=== PATIENT | female | born 1960 | race Caucasian/White ===

== ENCOUNTER 2017-02-18 14:30 | Emergency (ER) | payer OTHER ==
--- NOTE | 2017-02-18 15:11 | C.PDOC ---
History Of Present Illness <Osman Shi - Last Filed: 02/18/17 15:27> <Renee Jerry - Last Filed: 02/18/17 15:42> 56 year old female presenting with right knee pain. She has been having pain for many months but acutely twisted her knee while walking up the stairs at home 2 weeks ago. She denies falling. For the last two weeks she has been icing this area and resting. She was using OTC advil but states that it did not provide adequate relief, so she stopped taking it. Her is at bedside and explains that she is only able to walk a block or two at a time before needing to stop because she is in pain. She has been evaluated by Dr. Vazquez in the past and given oral analgesics. (Osman Shi) History Per: Patient, Family Onset/Duration Of Symptoms: Hrs, Persistent Current Symptoms Are (Timing): Still Present Severity: Moderate Pain Scale Rating Of: 5 Legs Front+Back: 1 - left knee pain along the anterior aspect Additional History Per: Family - Knee Description Of Injury: Twisted (right; no fall). denies: Fell Currently Unable To: Other (walk long periods) Alleviating Factor(s): Ice Therapy, Elevation, OTC Pain Medication <Osman Shi - Last Filed: 02/18/17 15:27> <Renee Jerry - Last Filed: 02/18/17 15:42> Time Seen by Provider: 02/18/17 15:01 Chief Complaint (Nursing): Lower Extremity Problem/Injury Past Medical History - Medical History PMH: Diabetes (IDDM), Hypercholesterolemia Other PMH: HTN Surgical History: No Surg Hx Family History: States: Unknown Family Hx - Social History Hx Alcohol Use: No Hx Substance Use: No <Osman Shi - Last Filed: 02/18/17 15:27> Vital Signs: Last Vital Signs Temp 98.5 F 02/18/17 14:55 Pulse 76 02/18/17 14:55 Resp 17 02/18/17 14:55 BP 108/66 02/18/17 14:55 Pulse Ox 98 02/18/17 15:36 Review Of Systems Constitutional: Negative for: Fever, Chills Cardiovascular: Negative for: Chest Pain, Palpitations Respiratory: Negative for: Cough, Shortness of Breath Gastrointestinal: Negative for: Nausea, Vomiting, Abdominal Pain, Diarrhea Genitourinary: Negative for: Dysuria Musculoskeletal: Positive for: Leg Pain (right knee) Skin: Negative for: Rash Neurological: Negative for: Weakness, Numbness <Osman Shi - Last Filed: 02/18/17 15:27> Physical Exam - Physical Exam Appears: No Acute Distress Skin: Warm, Dry Head: Atraumatic, Normacephalic Eye(s): bilateral: Normal Inspection Throat: Normal Cardiovascular: Rhythm Regular Respiratory: Normal Breath Sounds, No Rales, No Rhonchi Gastrointestinal/Abdominal: Soft, No Tenderness, No Distention, No Guarding Neurological/Psych: Oriented x3, Normal Speech, Normal Cognition, Normal Motor, Normal Sensation Gait: Steady (due to pain in left knee) 1 - right knee, no gross deformity, has limited ROM in flexion, negative anterior/posterior drawer, negative varus/valgus, she is tender along medial and lateral joint line <Osman Shi - Last Filed: 02/18/17 15:27> ED Course And Treatment O2 Sat by Pulse Oximetry: 98 <Osman Shi - Last Filed: 02/18/17 15:27> Disposition <Osman Shi - Last Filed: 02/18/17 15:27> Counseled Patient/Family Regarding: Diagnosis, Need For Followup, Rx Given - Disposition Disposition Time: 15:42 <Renee Jerry - Last Filed: 02/18/17 15:42> - Disposition Referrals: Rc Gates III, MD [Staff Provider] - Disposition: HOME/ ROUTINE Condition: GOOD Prescriptions: Diclofenac Sodium [Voltaren] 4 gm TP QID PRN #1 gel..gram. PRN Reason: Pain, Moderate (4-7) Instructions: Knee Sprain (ED) Forms: [employer] (Macedonian) - Clinical Impression Clinical Impression: Knee sprain
[2017-02-18 15:42] VITALS: BP 113/73; PULSE 71; RESP 18; TEMP 97.8; O2SAT 97
== END 2017-02-18 15:50 | disposition home or self-care (01) ==
LOC: C.ER 14:30
DX: S83.91XA Sprain of unspecified site of right knee, initial encounter (principal); X50.1XXA Overexertion from prolonged static or awkward postures, initial encounter; Y93.01 Activity, walking, marching and hiking; Y92.009 Unspecified place in unspecified non-institutional (private) residence as the place of occurrence of the external cause; E11.9 Type 2 diabetes mellitus without complications; Z79.4 Long term (current) use of insulin; E78.00 Pure hypercholesterolemia, unspecified; I10 Essential (primary) hypertension